=== PATIENT | female | born 2000 | race Caucasian/White ===

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

== ENCOUNTER → 2023-07-14 | Outpatient (REF) | payer OTHER | LOC: M LAB REF 16:11 | PROVIDERS: ATTEND Otolaryngology | DX: H61.22 Impacted cerumen, left ear (principal); H65.22 Chronic serous otitis media, left ear ==